=== PATIENT | female | born 1945 | race Caucasian/White ===

== ENCOUNTER 2016-04-21 04:14 | Inpatient (IN) | payer OTHER, BC, MEDICARE ==
[~2016-04-21] VITALS: Ht 167.6 cm; Wt 87.4 kg
[~2016-04-21 04:14] MED LIST: CARBIDOPA/LEVO1 EACH PO; CITRACAL + D31 EACH PO; COL-RITE100 M1 PO; COUMADIN3 MG PO; DONEPEZIL HCL10 MG PO; OXECTA5 MG PO; VITAMIN E1000 UNI1 PO
[2016-04-21 05:24] LABS: CHLORIDE 107 mEq/L (99-109); POTASSIUM 3.8 mEq/L (3.7-5.4); SODIUM 139 mEq/L (136-147)
[2016-04-21 05:27] LABS: GLUCOSE 147 mg/dL (70-99)
[2016-04-21 05:28] LABS: ANION GAP 10 MEQ/L (2-14); BASOPHIL COUNT 0.1 K/uL (0-0.1); EOSINOPHIL (%) 0.6 % (0-5); EOSINOPHIL COUNT 0.1 K/uL (0-0.3); HEMATOCRIT 44.7 % (36.0-46.0); IMMATURE GRANULOCYTE (%) 0.3 % (0.0-0.7); IMMATURE GRANULOCYTE COUNT 0.5 K/uL; LYMPHOCYTE COUNT 1.5 K/uL (1.0-2.8); MCH 28.9 PG (29.0-34.0); MEAN PLAT.VOLUME 11.5 uM^3 (9.5-12.4); MONOCYTE (%) 4.9 % (3-12); MONOCYTE COUNT 0.8 K/uL (0-0.8); NEUTROPHIL (%) 84.5 % (45-76); NEUTROPHIL COUNT 13.3 K/uL (1.8-6.4); PLATELET COUNT 233 K/uL (156-360); RBC DIS.WIDTH-CV 13.4 % (11.8-14.6); RBC DIS.WIDTH-SD 41.8 % (39-53); RED BLOOD COUNT 5.26 M/uL (3.80-5.20); TOTAL BILIRUBIN 0.4 mg/dL (0.0-1.0); WHITE BLOOD COUNT 15.7 K/uL (4.1-10.2)
[2016-04-21 05:30] LABS: ALKALINE PHOSPHATASE 88 IU/L (3-129); GFR ESTIMATE (CALCULATED) > 59 mL/min/
[2016-04-21 05:31] LABS: UREA NITROGEN (BUN) 16 mg/dL (9-23)
[2016-04-21 05:33] LABS: CREATINE KINASE 51 IU/L (1-294); TOTAL CK 51 IU/L (1-294)
[2016-04-21 05:36] LABS: TROP-I INTERPRETATION NEGATIVE; TROPONIN-I < 0.01 ng/mL (0.0-0.30)
[2016-04-21 05:39] LABS: CK-MB 1.6 ng/mL (0.0-4.9)
[2016-04-21 06:05] LABS: ADD MIUA? YES; BILIRUBIN NEGATIVE; BLOOD SMALL; COLOR YELLOW ((YELLOW)); GLUCOSE (STRIP) NEGATIVE; KETONES NEGATIVE; LEUKOCYTES TRACE; NITRITE POSITIVE; PROTEIN (STRIP) NEGATIVE; SPECIFIC GRAVITY 1.016 (1.000-1.030); UROBILINOGEN 0.2 MG/DL (0.2-1.0)
[2016-04-21 06:14] LABS: BACTERIA 2+ /HPF; EPITHELIAL CELLS NONE SEEN /HPF; MUCUS 1+ /LPF; RED BLOOD CELLS 0-5 /HPF (0-5); UCUL ADDED? YES
[2016-04-21] MEDS ORDERED: BUSPAR5 MG PO (07:41)
[2016-04-21 08:04] LABS: INTER. NORMALIZED RATIO 1.1; PROTHROMBIN TIME 10.7 (9.2-11.2)
[2016-04-21 09:30] VITALS: BP 123/60
[2016-04-21] MEDS ORDERED: VITAMIN E1000 UNI1 PO (09:30)
[2016-04-21] MEDS ORDERED: REMERON15 M2 PO (09:32)
[2016-04-21] MEDS ORDERED: ATIVAN1 MG PO (09:32)
[2016-04-21] MEDS ORDERED: TYLENOL REGULA325 MG PO (09:34)
[2016-04-21] MEDS ORDERED: ATIVAN0.5 MG PO (09:35)
[2016-04-21 11:48] VITALS: BP 133/69
[2016-04-21 14:38] LABS: POINT-OF-CARE METER ID UU14188577
[2016-04-21 18:46] LABS: HEMATOCRIT 43.2 % (36.0-46.0); MCH 29.9 PG (29.0-34.0); MCV 87.8 FL (83-99); MEAN PLAT.VOLUME 12.2 uM^3 (9.5-12.4); PLATELET COUNT 184 K/uL (156-360); RBC DIS.WIDTH-CV 13.5 % (11.8-14.6); RBC DIS.WIDTH-SD 42.9 % (39-53); RED BLOOD COUNT 4.92 M/uL (3.80-5.20); WHITE BLOOD COUNT 17.7 K/uL (4.1-10.2)
[2016-04-21 19:20] VITALS: BP 138/65
[2016-04-21 19:43] VITALS: BP 138/65
[2016-04-22 00:05] VITALS: BP 114/56
[2016-04-22 03:41] VITALS: BP 121/69
[2016-04-22 06:09] LABS: HEMATOCRIT 38.3 % (36.0-46.0); MCH 29.4 PG (29.0-34.0); MCHC 33.7 G/DL (30.0-36.0); MCV 87.2 FL (83-99); MEAN PLAT.VOLUME 12.3 uM^3 (9.5-12.4); PLATELET COUNT 182 K/uL (156-360); RBC DIS.WIDTH-CV 13.5 % (11.8-14.6); RBC DIS.WIDTH-SD 42.7 % (39-53); RED BLOOD COUNT 4.39 M/uL (3.80-5.20); WHITE BLOOD COUNT 15.2 K/uL (4.1-10.2)
[2016-04-22 06:30] LABS: ANION GAP 9 MEQ/L (2-14); CHLORIDE 103 MEQ/L (99-109); GFR ESTIMATE (CALCULATED) > 59 mL/min/; GLUCOSE 128 mg/dL (70-99); SAMPLE HEMOLYSIS CHECK 0; SAMPLE ICTERIC CHECK 0; SAMPLE LIPEMIA CHECK 0; SODIUM 133 MEQ/L (136-147); UREA NITROGEN (BUN) 14 mg/dL (9-23)
[2016-04-22 07:29] VITALS: BP 143/62
[2016-04-22 15:50] VITALS: BP 139/72
[2016-04-23 00:17] VITALS: BP 151/67
[2016-04-23 05:37] LABS: HEMATOCRIT 37.4 % (36.0-46.0); MCH 29.3 PG (29.0-34.0); MCHC 33.7 G/DL (30.0-36.0); MEAN PLAT.VOLUME 12.4 uM^3 (9.5-12.4); PLATELET COUNT 169 K/uL (156-360); RBC DIS.WIDTH-CV 13.8 % (11.8-14.6); RBC DIS.WIDTH-SD 43.8 % (39-53); WHITE BLOOD COUNT 15.1 K/uL (4.1-10.2)
[2016-04-23 06:02] LABS: ANION GAP 7 MEQ/L (2-14); CHLORIDE 107 MEQ/L (99-109); GFR ESTIMATE (CALCULATED) > 59 mL/min/; GLUCOSE 109 mg/dL (70-99); SAMPLE HEMOLYSIS CHECK 0; SAMPLE ICTERIC CHECK 0; SAMPLE LIPEMIA CHECK 0; SODIUM 137 MEQ/L (136-147); UREA NITROGEN (BUN) 13 mg/dL (9-23)
[2016-04-23 07:48] VITALS: BP 150/68
[2016-04-23 15:58] VITALS: BP 144/65
[2016-04-24 00:36] VITALS: BP 151/69
[2016-04-24 08:22] VITALS: BP 147/70
[2016-04-24] MEDS ORDERED: HYDROCODON-ACE1 EAC9 PO (10:50)
[2016-04-24] MEDS ORDERED: BACTRIM,SEPT1 TABLET PO (10:50)
[2016-04-24] MEDS ORDERED: HYDROCODON-ACE1 EAC7 PO (10:50)
[2016-04-24] MEDS ORDERED: LOVENOX40 MG/0.4 SC (10:52)
== END 2016-04-24 14:31 | DRG 470 ==
LOC: EME → EDBD 04:14 → EME 04:14 → 3EAST 07:24 → EDOF 07:24 → 3EAST 08:49
PROVIDERS: Emergency Medicine; Hospitalist; Orthopaedic Surgery
PROC: 0SR902A Replacement of Right Hip Joint with Metal on Polyethylene Synthetic Substitute, Uncemented, Open Approach (ICD-10-PCS; principal; 2016-04-21)
DX: S72.011A Unspecified intracapsular fracture of right femur, initial encounter for closed fracture (principal); W19.XXXA Unspecified fall, initial encounter; Y92.121 Bathroom in nursing home as the place of occurrence of the external cause; N30.00 Acute cystitis without hematuria; B96.20 Unspecified Escherichia coli [E. coli] as the cause of diseases classified elsewhere; R41.0 Disorientation, unspecified; G20 Parkinson's disease; F02.80 Dementia in other diseases classified elsewhere, unspecified severity, without behavioral disturbance, psychotic disturbance, mood disturbance, and anxiety; I69.398 Other sequelae of cerebral infarction; F04 Amnestic disorder due to known physiological condition; Z79.01 Long term (current) use of anticoagulants
CPT/HCPCS: 70450; 71010; 71020; 73501; 73502; 73560; 80048; 80053; 81003; 82550; 82553; 82948; 84484; 85025; 85027; 85610; 86850; 86900; 86901; 86920; 87040; 87077; 87086; 87186; 93005; 94799; 97530 GO; 97530 GP; 99281; 99285; J0131; J0690; J0696; J1170; J1650; J2250; J2405; J3010; J7030; J7050